=== PATIENT | female | born 1995 | race Caucasian/White ===

== ENCOUNTER 2017-11-06 03:57 | Emergency (ER) | payer SELFPAY ==
[~2017-11-06] VITALS: Ht 172.7 cm; Wt 133.4 kg
[2017-11-06] MEDS ORDERED: BC PILL (04:26)
--- NOTE | 2017-11-06 04:34 | NUR ---
Dr. Shah at bedside for MSE.
[2017-11-06] MEDS ORDERED: HYDROCODONE/APAP 5-325MG TABLET ONE (04:57)
--- NOTE | 2017-11-06 04:59 | NUR ---
Xray at bedside.
[2017-11-06] MEDS ORDERED: HYDROCODONE/APAP 5-325MG TABLET PO ONE (05:00)
--- NOTE | 2017-11-06 05:04 | NUR ---
Pt out of ER for CT.
--- NOTE | 2017-11-06 05:10 | NUR ---
Thais krishnamurthy in [facility] - 11/06/17 at [address] Shah on panel call with Dr. Joe Norton.
--- NOTE | 2017-11-06 05:15 | NUR ---
Pt back to ER from CT.
--- NOTE | 2017-11-06 06:19 | NUR ---
Pt reports pain 8/10, requests more pain meds.
[2017-11-06] MEDS ORDERED: OXYCODONE/APAP 5-325 MG TABLET PO ONE (06:30)
[2017-11-06] MEDS ORDERED: OXYCODONE/APAP 5-325 MG TABLET ONE (06:30)
--- NOTE | 2017-11-06 07:15 | NUR ---
Patient does not wish to proceed with medical care recommended by Dr. Trammell. Pt states she needs to go because needs to go to work. Patient given information related to possible complications, up to and including , which could occur as a result of leaving the hospital at this time. Patient verbalizes understanding of risks involved due to leaving against medical advice. Patient has signed AMA form.
[2017-11-06 07:20] VITALS: BP 111/75
== END 2017-11-06 07:21 | disposition left against medical advice (07) ==
LOC: ER 04:05
DX: S09.90XA Unspecified injury of head, initial encounter (principal); S29.9XXA Unspecified injury of thorax, initial encounter; Z88.0 Allergy status to penicillin; Z88.8 Allergy status to other drugs, medicaments and biological substances; Y04.0XXA Assault by unarmed brawl or fight, initial encounter; Y93.89 Activity, other specified; Y92.89 Other specified places as the place of occurrence of the external cause; Y99.8 Other external cause status
CPT/HCPCS: 70450; 71045; 99284; A4663